=== PATIENT | male | born 1960 | race African-American/Black ===

== ENCOUNTER 2025-02-01 05:27 | Emergency (ER) | payer MEDICARE, OTHER ==
[~2025-02-01] VITALS: Ht 172.7 cm; Wt 65.8 kg
[2025-02-01] MEDS ORDERED: MORPHINE SULFATE INJ 4 MG/ML DISP.SYRIN ONE (05:58)
[2025-02-01] MEDS ORDERED: ONDANSETRON HCL/PF 4 MG/2 ML VIAL ONE (05:58)
[2025-02-01] MEDS: MORPHINE SULFATE INJ 2 MG/ML DISP.SYRIN IV ONE (06:00)
[2025-02-01] MEDS: IV NS 0.9% 500 ML BAG IV ONE (06:00)
[2025-02-01 06:01] LABS: BASOPHILS % (AUTO) 0.7 % (0.0-2.0); EOSINOPHILS # (AUTO) 0.3 K/uL (0.0-0.7); EOSINOPHILS % (AUTO) 4.3 % (0.0-6.0); HEMATOCRIT 34 % (39-51); LYMPHOCYTES % (AUTO) 42.5 % (20.0-44.0); MEAN CORPUSCULAR HEMOGLOBIN 29 PG (26.0-33.0); MEAN CORPUSCULAR HGB CONC 33 g/dl (31.0-36.0); MEAN CORPUSCULAR VOLUME 89 fL (80-96); MONOCYTES # (AUTO) 0.6 K/uL (0.1-1.30); MONOCYTES % (AUTO) 8.1 % (2.0-12.0); NEUTROPHILS # (AUTO) 3.1 K/uL (1.8-8.9); NEUTROPHILS % (AUTO) 44.4 % (43.0-81.0); PLATELET COUNT (AUTO) 280 K/uL (150-450); RED BLOOD CELL COUNT(AUTO) 3.78 MIL/uL (4.5-6.0); RED CELL DISTRIBUTION WIDTH 16.4 % (11.5-15.0); WHITE BLOOD COUNT (AUTO) 6.9 K/uL (4.3-11.0)
[2025-02-01] MEDS: ONDANSETRON HCL/PF 4 MG/2 ML VIAL IVP ONE (06:03)
[2025-02-01 06:09] LABS: CALCIUM, SERUM 9.7 mg/dL (8.5-10.1); CARBON DIOXIDE 31 mmol/L (21-32); CHLORIDE 106 mmol/L (98-107); CREATININE 0.6 mg/dL (0.6-1.3); GLUCOSE 79 mg/dL (74-106); POTASSIUM 3.9 mmol/L (3.5-5.1); SODIUM SERUM 143 mmol/L (136-145); UREA NITROGEN, BLOOD 23 mg/dL (7-18)
[2025-02-01 06:13] LABS: INR 1.03 (0.91-1.10); PARTIAL THROMBOPLASTIN TIME 26.1 SEC (24.3-34.3); PROTHROMBIN TIME 10.9 SECS (9.2-11.1)
[2025-02-01 06:15] LABS: ALANINE AMINOTRANSFERASE 33 U/L (12-78); ALBUMIN 3.2 g/dL (3.4-5.0); ALKALINE PHOSPHATASE 81 U/L (46-116); ASPARTATE AMINOTRANSFERASE 27 U/L (15-37); BILIRUBIN,DIRECT 0.1 mg/dL (0.0-0.2); BILIRUBIN,TOTAL 0.5 mg/dL (0.2-1.0); TOTAL PROTEIN, SERUM 7.5 g/dL (6.4-8.2)
[2025-02-01] MEDS: ACETAMINOPHEN ES 500 MG TABLET PO ONE (07:00)
[2025-02-01] MEDS ORDERED: ACETAMINOPHEN ES 500 MG TABLET ONE ×2 (07:13→07:17)
[2025-02-01] MEDS ORDERED: AMLO10TA4 PO (08:45)
[2025-02-01] MEDS ORDERED: LISI20TA30 PO (08:45)
[2025-02-01] MEDS ORDERED: MELA3TAB41 PO (08:45)
[2025-02-01] MEDS ORDERED: MIRT7.5T10 PO (08:45)
[2025-02-01] MEDS ORDERED: ATOR20TA PO (08:45)
[2025-02-01] MEDS ORDERED: MAGN400O6 PO (08:45)
[2025-02-01] MEDS ORDERED: APIX5TAB PO (08:45)
[2025-02-01] MEDS ORDERED: TAMS-12 PO (08:45)
[2025-02-01] MEDS ORDERED: MULT-213 PO (08:45)
[2025-02-01] MEDS ORDERED: SENN8.6T19 PO (08:45)
[2025-02-01] MEDS ORDERED: PANT40TA2 PO (08:45)
[2025-02-01] MEDS ORDERED: PSYL0.5245 PO (08:45)
[2025-02-01] MEDS ORDERED: ONDA4TAB5 PO (08:45)
[2025-02-01 15:59] VITALS: BP 106/74; TEMP 97.8; O2SAT 97
== END 2025-02-01 15:30 | disposition home health service (06) ==
LOC: ER 05:37
DX: M54.50 Low back pain, unspecified (principal); R55 Syncope and collapse; Z79.01 Long term (current) use of anticoagulants; Z79.899 Other long term (current) drug therapy; W18.39XA Other fall on same level, initial encounter; Y93.89 Activity, other specified; Y92.89 Other specified places as the place of occurrence of the external cause; Y99.8 Other external cause status
CPT/HCPCS: 99285; 70450; 96374; 71045; 96375; 93005; 72131; 72128; 85025; 80048; 80076; 36415; 84484; 85730; J2270; J2405; J7040